=== PATIENT | male | born 1940 | race Caucasian/White ===

== ENCOUNTER 2021-02-25 10:21 | Outpatient (CLI) | payer MEDICARE, SELFPAY ==
--- NOTE | 2021-02-25 10:30 | ECG_ITS ---
Measurements Intervals Bowdle Rate: 72 P: 28 WI: 200 QRS: -36 QRSD: 100 T: 56 QT: 378 QTc: 415 Interpretive Statements SINUS RHYTHM WITH SINUS ARRHYTHMIA LEFT AXIS DEVIATION DELAYED PRECORDIAL R/S TRANSITION BASELINE ARTIFACT- I, II, III, AVR, AVL, AVF, V3 BORDERLINE ECG Electronically Signed On 02-25-2021 15:35:46 CDT by Manjit Moore D.O.
== END 2021-02-25 10:22 | disposition home or self-care (01) ==
LOC: ANHSURGERY 10:26
PROVIDERS: PCP Family Medicine; Visit Provider Plastic Surgery
DX: I10 Essential (primary) hypertension (principal); Z01.818 Encounter for other preprocedural examination; R94.31 Abnormal electrocardiogram [ECG] [EKG]
CPT/HCPCS: 93005

== ENCOUNTER 2021-02-27 00:27 | Day surgery (SDC) | payer MEDICARE, SELFPAY ==
[2021-02-24 08:58] VITALS: BMI 26.6
[2021-02-27] VITALS (8 sets, daily range): BP systolic 128–141; BP diastolic 56–72; PULSE 70–81; RESP 12–18; TEMP 36.3–36.4; O2SAT 94–100; BMI 25.4
--- NOTE | ~2021-02-27 | NM_ITS ---
EXAMINATION: NM sentinel node w imaging INDICATION: Melanoma of the left arm TECHNIQUE: 0.499 mCi Tc 99m Lymphoseek were injected in two aliquots in the left upper extremity ramón cent to the patient's melanoma. FINDINGS: A sentinel lymph node is identified in the left axilla. IMPRESSION: 1. Left axillary sentinel lymph node identified. Reviewed, dictated and finalized at location A.
--- NOTE | 2021-02-27 08:16 | WPDANESEPPF ---
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 Patient Data Age: 80 Gender: M Height: 1.83 m Weight: 89.09 kg Allergies Allergy/AdvReac Type Severity Reaction Status Date / Time No Known Allergies Allergy Verified 02/24/21 08:54 Home Medications Medication Instructions Recorded Confirmed Type cholecalciferol (vitamin D3) 50 50 mcg PO DAILY #90 tablet 09/20/19 02/27/21 Rx mcg (2,000 unit) tablet aspirin 81 mg tablet,delayed 81 mg PO QAM 09/21/19 02/24/21 History release metoprolol succinate 25 mg 25 mg PO QAM 09/21/19 02/24/21 History tablet,extended release 24 hr simvastatin 40 mg tablet 40 mg PO HS 09/21/19 02/24/21 History nitroglycerin 0.4 mg sublingual 0.4 mg SUBLINGUAL Q5M PRN 04/18/20 02/24/21 History tablet vit C,E,zinc,copper-zyvsc3x 250 1 cap PO DAILY 04/18/20 02/27/21 History mg-lutein 5 mg-zeaxanthin 1 mg capsule docusate sodium 100 mg capsule 100 mg PO DAILY PRN 01/29/21 02/24/21 History fluticasone propionate 50 2 spray INTRANASAL DAILY PRN 01/29/21 02/24/21 History mcg/actuation nasal spray,suspension Patient hx anesthesia problems: other (states slow to wake up) Family hx anesthesia problems: none Results Review: All pre-operative results and documents have been reviewed as part of the pre-operative evaluation. [facility], [facility] Past Medical History Medical History Hypertension Surgical History Surgical History Cataract both eyes FHx: cholecystectomy 2000 Hernia 1963 History of back surgery 2009 History of prostate surgery 2007 Stented coronary artery 2013 Family History Family History Father Cerebrovascular accident Family history of diabetes mellitus in first degree relative Family history of heart disease in male family member before age 55 Mother Family history of heart disease in male family member before age 55 Social History Social History Smoking status: Never smoker Second hand tobacco smoke exposure: No Alcohol intake: never Substance use: never Substance use type: does not use Living arrangements: with family Gender identity (if verbalized by the patient): Male Spiritual care concerns: No Agree to blood products: Yes Anes - Eval Final PreProcedure Day of Procedure 02/27/21 08:16 Patient weight: overweight Heart: regular rate and rhythm Lungs: clear to auscultation Airway: Mallampati scale class III Neurological: alert and oriented Last oral intake: >/= 8 hours ASA classification: III Emergent: no Anesthetic plan: proceed Anesthesia type and monitoring: general LMA and standard monitoring Results Review: All pre-operative results and documents have been reviewed as part of the pre-operative evaluation. Informed Consent: The patient's anesthetic plan and its attendant risks and benefits were discussed with the patient/family/POA. Questions were solicited and answers provided to the satisfaction of the patient/family/POA.
[2021-02-27] MEDS: LACTATED RINGERS 1,000 ML 30 ML IV CONT (09:20)
--- NOTE | 2021-02-27 09:39 | WPDHPUPDATE1 ---
History and Physical Update Update Date/Time: 02/27/21 09:39 History and Physical has been reviewed, including an updated exam of the patient. There are NO changes in the patient's condition. Risks, benefits, and alternatives have been discussed and questions answered. Patient agrees to proceed with procedure.
[2021-02-27] MEDS: LIDO 1%/EPINEPHRINE 1:100,000 50 ML VIAL 13 ML INFILTRATE (10:24)
--- NOTE | 2021-02-27 11:49 | P.OP_ITS ---
Procedure Note - Detailed Date of Procedure 02/27/21 Pre-op Diagnosis Melanoma Left Lateral Arm Post-op Diagnosis same Procedure Performed 1.6 cm wide excision of melanoma of the left arm with intermediate repair 6.5 cm and left axillary sentinel node biopsy Surgeon Nasir Miller MD Insulation Technician chaz Clark Anesthesia general Indications Melanoma Breslow thickness 1.3 mm left lateral arm Findings Left axillary sentinel node Description of Procedure The site was marked on the patient's left lateral arm and left axilla any site identified plated nuclear Medicine staff.. He was taken to the operating room and placed supine on operating table. Time-out was held and confirmed. He was given general endotracheal anesthesia the left arm and axillary regions were prepped and draped in usual fashion. The 2 sites were examined for markings. On the arm approximately 8 mm was marked out to either side along the axis of the prior incision running vertically. This patient already had a 5 mm margin by prior pathology around the primary tumor this area was infiltrated with 1% lidocaine with epinephrine. No tourniquet was utilized. The incision was made as marked and dissected down to the deep fascia. The skin and fat specimen were removed. A separate specimen comprising deep muscle fascia was also sent, these were in the same specimen bottle. This wound required about 5 mm undermining in all directions and the wound was closed with superficial fascia and deep dermal 3-0 Vicryl sutures approximating the wound margins. The skin was closed with a running 5 0 nylon. Attention was then turned to the left axilla. The arm was already extended on the hand table. The probe had already indicated to us that there was a hot site in the axilla. This was re-identified. The linear incision vertically in the anterior axilla line the isthmus was incised. Dissection was carried through the subcutaneous tissue into the axilla. The probe was utilized was to pinpoint the source of the signal. Two different lymph nodes removed both emanating increased radiation. The 2nd 1 however read over 700 counts against a background of 10. Both%. Bleeding was controlled with cautery. The wound was approximated with superficial fascia 3-0 Vicryl sutures in the dermal Vicryl sutures and a running 5 0 chromic suture. The patient was discharged from the operating room stable condition. Estimated Blood Loss 20 Drains No Packing No Pathology yes Complications No immediate complications Condition stable Disposition PACU
== END 2021-02-27 13:50 | disposition home or self-care (01) ==
PROVIDERS: PCP Family Medicine; Visit Provider Plastic Surgery
PROC: (CPT 11602; principal; 2021-02-27 10:00)
DX: C43.62 Malignant melanoma of left upper limb, including shoulder (principal); I10 Essential (primary) hypertension; E78.5 Hyperlipidemia, unspecified; I25.10 Atherosclerotic heart disease of native coronary artery without angina pectoris; Z95.5 Presence of coronary angioplasty implant and graft; Z85.46 Personal history of malignant neoplasm of prostate
CPT/HCPCS: 11602; 12032; 38500; 78195; 88305; 88307; 88342; A9520; J1100; J2405; J2704; J3010; J7120